=== PATIENT | male | born 1960 | race Hispanic/Latino ===

== ENCOUNTER 2022-01-11 06:56 | Day surgery (SDC) | payer OTHER ==
[2022-01-11] MEDS: Ringers Lactate 1,000 ML IV ONE ×2 (07:22→08:38)
[2022-01-11] MEDS ORDERED: LIDOCAINE 1% MPF 5 ML VIAL ONE (08:23)
[2022-01-11] MEDS ORDERED: propofoL 200 MG/20 ML VIAL IV ONE ×4 (08:23→09:34)
--- NOTE | 2022-01-11 09:05 | ENDO RPT ---
[address], [address] EGD PROCEDURE REPORT EXAM DATE: 01/11/2022 PATIENT NAME: Maricruz Correa MR#: [id number] BIRTHDATE: 1960 ATTENDING: Gomez Garcia Dr STATUS: outpatient TIP INSERTER: Sonia Fischer RN and Coretta Espitia CST INDICATIONS: The patient is a 62 yr old Male here for an EGD due to GERD PROCEDURE PERFORMED: EGD with biopsy MEDICATIONS: Per Anesthesia. TOPICAL ANESTHETIC: none CONSENT: The patient understands the risks and benefits of the procedure and understands that these risks include, but are not limited to: sedation, allergic reaction, infection, perforation and/or bleeding. Alternative means of evaluation and treatment include, among others: physical exam, x-rays, and/or surgical intervention. The patient elects to proceed with this endoscopic procedure. DESCRIPTION OF PROCEDURE: During intra-op preparation period all mechanical medical equipment was checked for proper function. Hand hygiene and appropriate measures for infection prevention was taken. Procedure, possible complications, and alternatives including but not limited to the possibility of bleeding, perforation, tear, infection, sepsis, need for surgery, need for blood transfusion, and anesthesia related complications were explained to the patient. After the risks, benefits and alternatives of the procedure were thoroughly explained, Informed consent was verified, confirmed and timeout was successfully executed by the treatment team. The patient was placed in the left lateral position. The patient was anesthetized with topical anesthesia. Through the anesthetized oropharyngeal area, the scope was passed without any difficulty. The EC-3890Li ([id number]) and [id number] ([id number]) endoscope was introduced through the mouth and advanced to the third portion of the duodenum. Retroflexed views revealed a small hiatal hernia. The gastroscope was then slowly withdrawn and removed. An early Schatzki's ring was found in the lower esophagus (no history of dysphagia). A small hiatal hernia was found Mild gastritis was found in the antrum. Multiple biopsies were obtained and sent to pathology. Multiple erosions were found in the antrum. Mild duodenitis was found in the bulb of the duodenum. ADVERSE EVENTS: There were no complications. IMPRESSIONS: 1. Early Schatzki's ring in the lower esophagus (no history of dysphagia) 2. Small hiatal hernia 3. Mild gastritis in the antrum, s/p biopsies 4. Multiple (3) erosions in the antrum 5. Mild duodenitis in the bulb of the duodenum RECOMMENDATIONS: 1. await biopsy results 2. acid suppression therapy REPEAT EXAM: Gomez Garcia Dr eSigned: Gomez Garcia Dr 01/11/2022 9:05 AM cc: Gomez Gilbert M.D. CPT CODES: ICD9 CODES: PATIENT NAME: Maricruz Correa MR#: [id number]
--- NOTE | 2022-01-11 09:51 | ENDO RPT ---
[address], [address] COLONOSCOPY PROCEDURE REPORT EXAM DATE: 01/11/2022 PATIENT NAME: Maricruz Correa MR #: [id number] BIRTHDATE: 1960 ATTENDING: Gomez Garcia Dr STATUS: outpatient AUTOMOTIVE INSTRUCTOR: Sonia Fischer RN and Coretta Espitia CST INDICATIONS: The patient is a 62 yr old Male here for a colonoscopy due to colon cancer screening PROCEDURE PERFORMED: Colonoscopy with biopsy - cold polypectomy and Colonoscopy with snare polypectomy MEDICATIONS: Per Anesthesia. ESTIMATED BLOOD LOSS: None CONSENT: The patient understands the risks and benefits of the procedure and understands that these risks include, but are not limited to: sedation, allergic reaction, infection, perforation and/or bleeding. Alternative means of evaluation and treatment include, among others: physical exam, x-rays, and/or surgical intervention. The patient elects to proceed with this endoscopic procedure. DESCRIPTION OF PROCEDURE: During intra-op preparation period all mechanical medical equipment was checked for proper function. Hand hygiene and appropriate measures for infection prevention was taken. Procedure, possible complications, alternatives including, but not limited to possibility of bleeding, perforation, tear, infection, sepsis, need for surgery, need for blood transfusion, were explained to the patient. After the risks, benefits and alternatives of the procedure were thoroughly explained, Informed consent was verified, confirmed and timeout was successfully executed by the treatment team. The patient was placed in the left lateral position. A digital rectal exam was performed and revealed external hemorrhoids. After appropriate level of anesthesia, the scope was passed. The EC-3890Li ([id number]) endoscope was introduced through the anus and advanced to the terminal ileum which was intubated for a short distance. The quality of the prep was good. The instrument was then slowly withdrawn as the colon was fully examined. Scope withdrawal time was 9 minutes. COLON FINDINGS: A smooth sessile polyp measuring 4 mm in size was found in the ascending colon. A polypectomy was performed with cold forceps. A smooth pedunculated polyp measuring 7 mm in size was found in the rectum. A polypectomy was performed using snare cautery. Two smooth sessile polyps ranging between 3-5mm in size were found in the rectum. A polypectomy was performed with a cold snare. Ten smooth sessile polyps ranging between 3-5mm in size were found in the rectum. A polypectomy was performed with cold forceps. Moderate diverticulosis was noted in the sigmoid colon. No bleeding was noted from the diverticulosis. Small internal and external hemorrhoids were found. Retroflexed views revealed small hemorrhoids. The scope was then completely withdrawn from the patient and the procedure terminated. ADVERSE EVENTS: There were no complications. IMPRESSIONS: 1. 4 mm sessile polyp in the ascending colon, s/p cold polypectomy 2. 7 mm pedunculated polyp in the rectum, s/p hot snare polypectomy 3. Two 3-5 mm sessile polyps in the rectum, s/p cold polypectomies 4. Ten 2-4 mm sessile polyps in the rectum, s/p cold polypectomies 5. Moderate diverticulosis in the sigmoid colon 6. Small internal and external hemorrhoids 7. Intubation to terminal ileum RECOMMENDATIONS: 1. await biopsy results 2. avoid NSAIDS for 2 weeks 3. fiber rich diet RECALL: Return in 3 year(s) for Colonoscopy. Gomez Garcia Dr eSigned: Gomez Garcia Dr 01/11/2022 9:51 AM cc: Gomez Gilbert CPT CODES: ICD9 CODES: PATIENT NAME: Maricruz Correa MR#: [id number]
[2022-01-11 10:05] VITALS: BP 130/93; TEMP 97.3; O2SAT 97
== END 2022-01-11 10:20 | disposition home or self-care (01) ==
LOC: OR 06:56
PROVIDERS: ATTEND Internal Medicine Gastroenterology
PROC: 0DBP8ZX Excision of Rectum, Via Natural or Artificial Opening Endoscopic, Diagnostic (ICD-10-PCS; 2022-01-11)
PROC: 0DB68ZX Excision of Stomach, Via Natural or Artificial Opening Endoscopic, Diagnostic (ICD-10-PCS; principal; 2022-01-11 08:00)
PROC: 0DBK8ZX Excision of Ascending Colon, Via Natural or Artificial Opening Endoscopic, Diagnostic (ICD-10-PCS; 2022-01-11 08:00)
DX: K21.9 Gastro-esophageal reflux disease without esophagitis (principal); Z12.11 Encounter for screening for malignant neoplasm of colon; E78.5 Hyperlipidemia, unspecified; I10 Essential (primary) hypertension; I25.10 Atherosclerotic heart disease of native coronary artery without angina pectoris; F41.8 Other specified anxiety disorders; E66.9 Obesity, unspecified; D64.4 Congenital dyserythropoietic anemia; K57.30 Diverticulosis of large intestine without perforation or abscess without bleeding; D12.4 Benign neoplasm of descending colon; K29.50 Unspecified chronic gastritis without bleeding
CPT/HCPCS: 43239; 45380; 45385; 88312; 88305; J2704 ×3; J7120

== ENCOUNTER 2022-05-23 13:30 | Emergency (ER) | payer OTHER ==
--- OUTSIDE RECORDS SUMMARY | 2022-05-23 13:31 | XMS REPORT | Continuity of Care Document ---
:1960 Author Organization [facility] t Address [address] [place] [address] Dr. Cervantes[address] [place] [address] Care Team Providers Name Role Phone JENNA HAMILTON Primary Care Physician Unavailable ANJELICA HERRON Attending Clinician Unavailable LEONEL Attending Clinician Unavailable Leonel VIDAL Attending Clinician Anjelica Herron MD Attending Clinician YESSICA K.Fran Attending Clinician Unavailable Leeanne JUAN Admitting Clinician Unavailable Payers Payer Name Policy Type Policy Number Effective Date Expiration Date S [facility] - [id number] 2020 2020 00:00:0 0 OUT OF STATE 00:00:00 Problems Condition Condition Condition Status Onset Resolution Last Treating Co mments Source Name Details Category Date Date Treatment Clinician Date Dyslipidem Dyslipidem Disease Active 2020-10 U nivers ia ia 2-05 ity of 00:00: [place] 00 Medical Branch Essential Essential Disease Active 2020-10 Uni vers hypertensi hypertensi 2-05 it y of on on 00:00: [place] 00 Medical Branch Coronary Coronary Disease Active 2020-10 Unive rs artery artery 2-05 ity of disease disease 00:00: [place] involving involving 00 Medi nimo tanana tanana Branch coronary coronary artery of artery of tanana tanana heart with heart with angina angina pectoris pectoris Atypical Atypical Disease Active 2020-10 Unive rs chest pain chest pain 2-02 it y of 00:00: [place] 00 Medical Branch Obesity Obesity Disease Active 2020-10 Univers (BMI (BMI 2-02 ity of 30-39.9) 30-39.9) 00:00: [place] 00 Medical Branch Allergies, Adverse Reactions, Alerts Allergy Allergy Status Severity Reaction(s) Onset Inactive Treating Comm ents Source Name Type Date Date Clinician NO KNOWN Drug Active Univers ALLERGIE Class ity of S [facility] Social History Social Habit Start Date Stop Date Quantity Comments Source Exposure to Not sure [facility] SARS-CoV-2 [facility] (event) Branch Alcohol intake 2022-02-13 2022-02-13 Ex-drinker [facility] 00:00:00 00:00:00 (finding) [facility] Tobacco use and 2021-09-29 2021-09-29 Never used Universit y of exposure 00:00:00 00:00:00 [facility] Sex Ass[birth year] At [birth year] Universit y of 00:00:00 00:00:00 [facility] Smoking Status Start Date Stop Date Source Never smoker [facility] Medications Ordered Filled Start Stop Current Ordering Indication Dosage Frequency Signature Comments Components Source Medication Medication Date Date Medication? Clinician (SIG) Name Name lisinopriL 2021- No 2.5mg Take 2.5 U nivers 2.5 mg 6-13 06-13 mg by ity of tablet 14:42: 00:00 mouth [place] 32 :00 daily. Medical Branch lisinopriL Yes 2.5mg Take 1 Univ ers 2.5 mg 6-13 tablet by ity of tablet 00:00: mouth [place] 00 daily. Medical Branch isosorbide Yes 30mg Take 1 Unive rs mononitrate 6-09 tablet by ity of 30 mg 24 hr 00:00: mouth [place] tablet 00 daily. Medical Branch isosorbide 0 Yes 30mg Take 1 Unive rs mononitrate 6-09 tablet by ity of 30 mg 24 hr 00:00: mouth [place] tablet 00 daily. Medical Branch traMADoL 50 Yes 50mg Take 50 mg Univers mg tablet 4-18 by mouth ity of 09:19: every 8 [place] 16 (eight) Medical hours as Branch needed. Diphenhydra Yes Take by Un amira mine-Acetam 4-18 mouth at ity of inophen 09:19: bedtime. [place] 25-500 mg 16 Medical Tab Branch gabapentin 2-0 Yes 400mg Take 400 Un amira 400 mg 4-18 mg by ity of capsule 09:19: mouth 3 [place] 16 (three) Medical times Branch daily. Pantoprazol 2022-0 Yes 40mg Take 40 mg Univers e 40 mg 4-18 by mouth ity of delayed-rel 09:19: daily. [place] s ease 16 Medical suspension Branch cyclobenzap 2021-0 Yes 5mg Take 5 mg U nivers rine 5 mg 4-18 by mouth ity of tablet 09:19: as needed [place] for Muscle Medical Spasms. Branch lisinopriL 2021-0 Yes 2.5mg Take 2.5 Un amira 2.5 mg 4-18 mg by ity of tablet 09:19: mouth [place] 16 daily. Medical Branch traMADoL 50 2021-0 Yes 50mg Take 50 mg Univers mg tablet 4-18 by mouth ity of 09:19: every 8 [place] [address] (eight) Medical hours as Branch needed. Diphenhydra 2-0 Yes Take by Un amira mine-Acetam 4-18 mouth at ity of inophen 09:19: bedtime. [place] 25-500 mg 16 Medical Tab Branch gabapentin 2021-0 Yes 400mg Take 400 Un amira 400 mg 4-18 mg by ity of capsule 09:19: mouth 3 [place] 16 (three) Medical times Branch daily. Pantoprazol 2-0 Yes 40mg Take 40 mg Univers e 40 mg 4-18 by mouth ity of delayed-rel 09:19: daily. Isidro s ease 16 Medical suspension Branch cyclobenzap 2021-0 Yes 5mg Take 5 mg U nivers rine 5 mg 4-18 by mouth ity of tablet 09:19: as needed [place] for Muscle Medical Spasms. Branch lisinopriL 2021-0 Yes 2.5mg Take 2.5 Un amira 2.5 mg 4-18 mg by ity of tablet 09:19: mouth [place] 16 daily. Medical Branch traMADoL 50 2021-0 Yes 50mg Take 50 mg Univers mg tablet 4-18 by mouth ity of 09:19: every 8 [place] 16 (eight) Medical hours as Branch needed. Diphenhydra 2022-0 Yes Take by Un amira mine-Acetam 4-18 mouth at ity of inophen 09:19: bedtime. [place] 25-500 mg 16 Medical Tab Branch gabapentin Yes 400mg Take 400 Un amira 400 mg 4-18 mg by ity of capsule 09:19: mouth 3 [place] 16 (three) Medical times Branch daily. Pantoprazol Yes 40mg Take 40 mg Univers e 40 mg 4-18 by mouth ity of delayed-rel 09:19: [place]. [place] 16 Medical suspension Branch cyclobenzap Yes 5mg Take 5 mg U nivers rine 5 mg 4-18 by mouth ity of tablet 09:19: as needed [place] 16 for Muscle Medical Spasms. Branch meloxicam 2021-2021- No [id number] 7.5mg Take 1 Univers 7.5 mg 4-18 07-18 tablet by ity of tablet 00:00: 04:59 mouth [place] 00 :00 daily for Medical 90 days. Branch meloxicam 2021-2021- No [id number] 7.5mg Take 1 Univers 7.5 mg 4-18 07-18 tablet by ity of tablet 00:00: 04:59 mouth [place] 00 :00 daily for Medical 90 days. Branch meloxicam 2021- No [id number] 7.5mg Take 1 Univers 7.5 mg 4-18 07-18 tablet by ity of tablet 00:00: 04:59 mouth [place] 00 :00 daily for Medical 90 days. Branch isosorbide Yes 30mg Take 1 Unive rs mononitrate 3-01 tablet by ity of 30 mg 24 hr 00:00: mouth [place] tablet 00 daily. Medical Branch isosorbide 2021- No 30mg Take 1 Univ ers mononitrate 3-01 -09 tablet by it y of 30 mg 24 hr 00:00: 00:00 [place] tablet 00 :00 daily. Medical Branch aspirin 81 0 Yes 81mg Take 81 mg U nivers mg EC 2-14 by mouth ity of tablet 13:57: daily. [place] [address] Medical Branch aspirin 81 2021-0 Yes 81mg Take 81 mg U nivers mg EC 2-14 by mouth ity of tablet 13:57: daily. Am [address] Branch aspirin 81 2021-0 Yes 81mg Take 81 mg U nivers mg EC 2-14 by mouth ity of tablet 13:57: daily. Am [place] 45 Medical Branch atorvastati Yes [id number] 40mg Take 1 Univers n 40 mg 2-14 tablet by ity of tablet 00:00: mouth 00 daily. Medical Branch atorvastati Yes [id number] 40mg Take 1 Univers n 40 mg 2-14 tablet by ity of tablet 00:00: mouth 00 daily. Medical Branch atorvastati Yes [id number] 40mg Take 1 Univers n 40 mg 2-14 tablet by ity of tablet 00:00: mouth 00 daily. Medical Branch Vital Signs Vital Name Observation Time Observation Value Comments Source Systolic blood 2022-02-13 14:17:00 140 mm[Hg] [facility] blood 2022-02-13 14:17:00 93 mm[facility]Hg] [facility] 2022-02-13 14:16:00 113 /min [facility] Body temperature 2022-02-13 14:16:00 36.72 Nissa [facility] Respiratory rate 2022-02-13 14:16:00 18 /min [facility] Body height 2022-02-13 14:16:00 175.3 cm [facility] Body weight 2022-02-13 14:16:00 100.517 kg [facility] BMI 2022-02-13 14:16:00 32.72 kg/m2 [facility] Oxygen saturation in 2022-02-13 14:16:00 95 /min [facility] blood by [facility] Pulse oximetry Branch Procedures This patient has no known procedures. Encounters Start End Encounter Admission Attending Care Care Encounter Source Date/Time Date/Time Type Type Clinicians Facility Department ID 2022-08-21 2022-08-21 Outpatient Ayana HERRON [facility] [id number] [facility] 10:00:00 10:00:00 [id number]-07 2022-06-07 Outpatient Ayana CASTANEDA [facility] [id number] [facility] 14:40:00 14:40:00 TIERA [id number] renitay o f [facility] 2022-04-10 2022-04-10 [facility] [id number] Univers 00:00:00 00:00:00 Rebelfelipe DE LUNAJOSE [id number] ity [facility] [id number] [id number] [address] 2022-04-06 2022-04-06 [facility] [id number] Univers 00:00:00 00:00:00 Tiera BHAGAT [id number] ity [facility] [id number] [id number] [address] 2022-02-13 2022-02-13 Office Germaine [facility] [id number] [facility] 09:15:00 10:39:45 Visit [facility] [id number] ity of [facility] [id number] [place] [id number] [address] 2021-12-12 2021-12-12 Outpatient R LEONEL [facility] [id number] Univers 14:00:00 16:11:19 TIERA taylor o f [facility] 2021-12-07 2021-12-07 Outpatient R EYSSICA [facility] [id number] Univers 09:41:29 23:59:00 SENDIL brandon [facility] Results This patient has no known results.
--- NOTE | 2022-05-23 14:39 | RAD REPORT ---
EXAM DESCRIPTION: RAD - Ankle Left 3 View - 05/23/2022 2:33 pm CLINICAL HISTORY: PAINfollowing fall, twisting injury, laceration COMPARISON: No comparisons FINDINGS: No fractures confirmed. There is no dislocation or periosteal reaction. No joint effusion seen. Minimal degenerative changes are present at the tibiotalar joint space. Soft tissue swelling is present. No foreign body. Arterial tree calcifications are present. IMPRESSION: No fracture or acute bone finding. Soft tissue swelling is present around the ankle joint.
--- NOTE | 2022-05-23 14:41 | RAD REPORT ---
EXAM DESCRIPTION: RAD - Knee Right 3 View - 05/23/2022 2:33 pm CLINICAL HISTORY: PAIN COMPARISON: No comparisons FINDINGS: No fracture, dislocation or periosteal reaction.No joint effusion seen. No joint space margareth rowing. No foreign body or other soft tissue abnormality. IMPRESSION: Negative right knee. Clinical concerns for internal derangement or occult bony injury could be further assessed with MR im aging.
[2022-05-23 14:44] LABS: Absolute Lymphocytes (CBC) 2.2 K/uL (0.7-4.9); Hematocrit 40.4 % (39.6-49.0); Lymphocytes % 22.9 % (15.3-44.8); MCV 94.8 fL (80-100); MPV 6.7 fL (7.6-11.3); RBC Red Blood Cell Count 4.26 M/uL (4.33-5.43)
[2022-05-23 15:02] LABS: Albumin 3.5 g/dL (3.4-5.0); Bilirubin Total 0.4 mg/dL (0.2-1.0); Protein, Total 6.6 g/dL (6.4-8.2)
[2022-05-23] MEDS ORDERED: HYDROCODONE/APAP 5/325 MG TAB ONE (15:06)
[2022-05-23] MEDS ORDERED: TETANUS & DIPHTHERIA TOX,ADULT 0.5 ML VIAL ONE (15:07)
--- NOTE | 2022-05-23 15:22 | RAD REPORT ---
EXAM DESCRIPTION: US - Extremity Venous Uni Ltd - 05/23/2022 2:58 pm CLINICAL HISTORY: PAIN COMPARISON: None. TECHNIQUE: Real-time sonographic evaluation of the left lower extremity deep venous system was perfo rmed. FINDINGS: Normal compressibility, flow augmentation, phasic flow and spontaneous flow are identified in the left lower extremity common femoral, superficial femoral, popliteal and posterior tibial vein s. No intraluminal filling defects seen. IMPRESSION: No DVT in the left lower extremity.
--- NOTE | 2022-05-23 15:38 | EDPHYS ---
Physician Documentation [facility] Name: Maricruz Correa Age: 62 yrs Sex: Male : 1960 Arrival Date: 05/23/2022 Time: 13:33 Bed 15 Private MD: ED Physician Adonay Sheikh HPI: 05/23 14:13 This 62 yrs old Male presents to ER via Ambulatory with complaints of Fall pm1 Injury, Ankle Injury, Leg Injury. 14:13 Details of fall: The patient fell from an upright position, while standing. Onset: The pm1 symptoms/episode began/occurred yesterday. Associated injuries: The patient sustained right knee, contusion, left medial ankle, abrasion, contusion. Severity of symptoms: in the emergency department the symptoms are actually worse. The patient has not experienced similar symptoms in the past. The patient has not recently seen a physician[place] with [place] leg starting at his ankle scratching against a rock and then falling onto his right knee. Patient reports increased swelling and possible infection to left ankle area. Patient able to walk with injury to the ankle and right knee. Historical: - Allergies: 14:13 No Known Allergies; hb - PMHx: 14:13 Hypertensive disorder; Diabetes mellitus; hb - Immunization history:: Adult Immunizations up to date. - Social history:: Smoking status: Patient denies any tobacco usage or history of. ROS: 14:13 Constitutional: Negative for fever, chills, and weight loss, Cardiovascular: Negative pm1 for chest pain, palpitations, and edema, Respiratory: Negative for shortness of breath, cough, wheezing, and pleuritic chest pain. 14:13 MS/extremity: Positive for pain, of the Right knee, left anklemedial aspect, Negative for decreased range of motion, deformity. 14:13 Skin: Positive for abrasion(s), of the left medial ankle. 14:13 All other systems are negative. Exam: 14:13 Constitutional: This is a well developed, well nourished patient who is awake, alert, pm1 and in no acute distress. Head/Face: Normocephalic, atraumatic. 14:13 Back: No spinal tenderness. No costovertebral tenderness. Full range of motion. 14:13 Eyes: Exam is negative for acute changes, Periorbital structures: appear normal, Extraocular movements: no acute changes. 14:13 ENT: Exam is negative for acute changes, Mouth: no acute changes, Lips: normal, moist, Oral mucosa: normal, pink and intact, moist. 14:13 Cardiovascular: Exam negative for acute changes, Rate: normal, Rhythm: regular, Pulses: no pulse deficits are appreciated. 14:13 Respiratory: Exam negative for acute changes, respiratory distress, shortness of breath, Breath sounds: are clear throughout. 14:13 Musculoskeletal/extremity: Extremities: grossly normal except: noted in the right knee: tenderness, There is no evidence of decreased ROM, deformity. 14:13 Skin: Appearance: normal except for affected area, abscess, not appreciated, cellulitis, that is mild, on the left medial ankle, injury, abrasion(s), moderate sized abrasion noted, of the left medial ankle, contusion(s), that are superficial, of the left medial ankle. 14:13 Neuro: Exam negative for acute changes, Orientation: is normal, Mentation: is normal, Motor: is normal, moves all fours. Vital Signs: 14:02 BP 168 / 88; Pulse 89; Resp 16; Temp 98.1; Pulse Ox 98% on R/A; Weight 102.51 kg; hb Height 5 ft. 9 in. (175.26 cm); Pain 8/10; 15:00 BP 112 / 88; Pulse 88; Resp 16; Pulse Ox 98% on R/A; vg1 14:02 Body Mass Index 33.37 (102.51 kg, 175.26 cm) hb MDM: 14:14 Patient medically screened. pm1 15:35 Data reviewed: vital signs. Data interpreted: Pulse oximetry: on room air is 98 %. pm1 Interpretation: normal. 15:35 ED course: Shared decision making with daughter and patient for either admission or pm1 trial with antibiotics and return if no improvement. Currently with medication option being p.o. medications elected for outpatient trial with antibiotics. Understood that if no improvement in worsening symptoms to return to the ER for likely admission due to failed outpatient antibiotic therapy. 05/23 14:13 Order name: CBC with Diff; Complete Time: 15:05 pm1 05/23 14:13 Order name: CMP; Complete Time: 15:05 pm1 05/23 14:13 Order name: Knee Right 3 View XRAY; Complete Time: 15:05 pm1 05/23 14:13 Order name: Ankle Left 3 View XRAY; Complete Time: 14:42 pm1 05/23 14:13 Order name: Extremity Venous Uni Ltd US; Complete Time: 15:25 pm1 05/23 14:13 Order name: IV Saline Lock; Complete Time: 15:15 pm1 Administered Medications: 15:20 Drug: Tetanus-Diphtheria Toxoid Adult 0.5 ml {Locksmith: [employer]uso. Exp: vg1 01/21/2024. Lot #: [id number]. } Route: IM; Site: right deltoid; 15:20 Drug: HYDROcodone-acetaminophen 5 mg-325 mg 1 tabs Route: PO; vg1 16:00 Drug: Doxycycline 100 mg Route: PO; vg1 16:00 Drug: Bactrim (trimethoprim-sulfamethoxazole) (160 mg-800 mg (DS) 1 tablet Route: PO; vg1 Disposition Summary: 05/23/22 15:38 Discharge Ordered Location: Home pm1 Problem: new pm1 Symptoms: have improved pm1 Condition: Stable pm1 Diagnosis - Contusion of right knee pm1 - Cellulitis of left lower limb - left ankle pm1 Followup: pm1 - With: Emergency Department - When: As needed - Reason: Worsening of condition Followup: pm1 - With: Private Physician - When: 2 - 3 days - Reason: Recheck today's complaints, Continuance of care, Re-evaluation by your physician Discharge Instructions: - Discharge Summary Sheet pm1 - Contusion pm1 - Cellulitis, Adult pm1 - Acute Knee Pain, Adult pm1 Forms: - Medication Reconciliation Form pm1 - Thank You Letter pm1 - Antibiotic Education pm1 - Prescription Opioid Use pm1 Prescriptions: - Doxycycline Hyclate 100 mg Oral Tablet - take 1 tablet by ORAL route every 12 hours; 20 tablet; Refills: 0, Product pm1 Selection Permitted - Bactrim DS 800-160 mg Oral Tablet - take 1 tablet by ORAL route every 12 hours for 10 days; 20 tablet; Refills: 0, pm1 Product Selection Permitted - Tylenol-Codeine #3 300 mg-30 mg Oral - take 2 tablet by ORAL route every 6 hours As needed; 20 tablet; Refills: 0, pm1 Product Selection Permitted Signatures: Dispatcher [employer] EDGeovanni Waddell NP BAND SHOVER pm1 Aury Jordan, RN RN hb Angie Correa RN RN vg1 Corrections: (The following items were deleted from the chart) 15 14:13 PMHx: hyperten; hb hb
--- NOTE | 2022-05-23 15:38 | ER ---
Nurse's Notes [facility] Name: Maricruz Correa Age: 62 yrs Sex: Male : 1960 Arrival Date: 05/23/2022 Time: 13:33 Bed 15 Private MD: Diagnosis: Contusion of right knee;Cellulitis of left lower limb-left ankle Presentation: 05/23 14:02 Chief complaint: Left ankle and right knee pain [place]. hb Abrasion noted to left ankle. Coronavirus screen: At this time, the client does not indicate any symptoms associated with coronavirus-19. Ebola Screen: No symptoms or risks identified at this time. Initial Sepsis Screen: Does the patient meet any 2 criteria? No. Patient's initial sepsis screen is negative. Does the patient have a suspected source of infection? No. Patient's initial sepsis screen is negative. Risk Assessment: Do you want to hurt yourself or someone else? Patient reports no desire to harm self or others. Onset of symptoms was May 22, 2022. 14:02 Method Of Arrival: Ambulatory hb 14:02 Acuity: MAURA 3 hb Historical: - Allergies: 14:13 No Known Allergies; hb - PMHx: 14:13 Hypertensive disorder; Diabetes mellitus; hb - Immunization history:: Adult Immunizations up to date. - Social history:: Smoking status: Patient denies any tobacco usage or history of.
[2022-05-23] MEDS ORDERED: DOXYCYCLINE 100 MG CAP PO ONE (16:04)
[2022-05-23] MEDS ORDERED: SMZ./TMP. 800/160 MG TABLET ONE (16:04)
[2022-05-23 16:42] VITALS: TEMP 98.1; O2SAT 98
[2022-05-23 16:45] VITALS: BP 112/88
== END 2022-05-23 16:27 | disposition home or self-care (01) ==
LOC: ER 13:30
DX: L03.116 Cellulitis of left lower limb (principal); S80.01XA Contusion of right knee, initial encounter; Z23 Encounter for immunization; E11.9 Type 2 diabetes mellitus without complications; I10 Essential (primary) hypertension
CPT/HCPCS: 36415; 80053; 85025; 90471; 90714; 93971; 99284

== ENCOUNTER 2022-06-21 13:45 | Observation (INO) | payer OTHER ==
--- OUTSIDE RECORDS SUMMARY | 2022-06-21 13:49 | XMS REPORT | Continuity of Care Document ---
:1960 Author Organization [facility] t Address [address] [place] [address] Dr. Cervantes[address] [place] [address] Care Team Providers Name Role Phone JENNA HAMILTON Primary Care Physician Unavailable BERNIE HERRON Attending Clinician Unavailable TIERA CASTANEDA Attending Clinician Unavailable Tiera Castaneda MD Attending Clinician Bernie Herron MD Attending Clinician [phone] YESSICA, SENDLETICIA K.HSaud Attending Clinician Unavailable YESSICA SENDLETICIA K.HSaud Admitting Clinician Unavailable Payers Payer Name Policy Type Policy Number Effective Date Expiration Date S ource [facility] [id number] 2021 PLUS 00:00:00 BCBS [facility] - [id number] 2020 2020 00:00:0 0 OUT OF STATE 00:00:00 Problems Condition Condition Condition Status Onset Resolution Last Treating Co mments Source Name Details Category Date Date Treatment Clinician Date Dyslipidem Dyslipidem Disease Active 2020-10 U nivers ia ia 2-05 ity of 00:00: [place] 00 Medical Branch Essential Essential Disease Active 2020-10 Uni vers hypertensi hypertensi 2-05 it y of on on 00:00: [place] 00 Medical Branch Coronary Coronary Disease Active 2020-10 Unive rs artery artery 2-05 ity of disease disease 00:00: [place] involving involving 00 Medi nimo [place] coronary coronary artery of artery of [place] heart with heart with angina angina pectoris pectoris Atypical Atypical Disease Active 2020-10 Unive rs chest pain chest pain 2- it y of 00:00: [place] 00 Medical Branch Obesity Obesity Disease Active 2020-10 Univers (BMI (BMI 2- ity of 30-39.9) 30-39.9) 00:00: [place] 00 Medical Branch Allergies, Adverse Reactions, Alerts Allergy Allergy Status Severity Reaction(s) Onset Inactive Treating Comm ents Source Name Type Date Date Clinician NO KNOWN Drug Active Univers ALLERGIE Class ity of S [facility] Social History Social Habit Start Date Stop Date Quantity Comments Source Exposure to Not sure [facility] SARS-CoV-2 [place] Medical (event) Branch Alcohol intake 2022-02-13 2022-02-13 Ex-drinker [facility] 00:00:00 00:00:00 (finding) [facility] Tobacco use and 2021-09-29 2021-09-29 Never used Universit y of exposure 00:00:00 00:00:00 [facility] Sex Ass[birth year] At [birth year] Universit y of 00:00:00 00:00:00 [facility] Smoking Status Start Date Stop Date Source Never smoker [facility] Medications Ordered Filled Start Stop Current Ordering Indication Dosage Frequency Signature Comments Components Source Medication Medication Date Date Medication? Clinician (SIG) Name Name lisinopriL No 2.5mg Take 2.5 U nivers 2.5 [...] [place] tablet 00 daily. Medical Branch isosorbide Yes 30mg Take 1 Unive rs mononitrate 6-09 tablet by ity of 30 mg 24 hr 00:00: mouth [place] tablet 00 daily. Medical Branch traMADoL 50 Yes 50mg Take 50 mg Univers mg tablet 4-18 by mouth ity of 09:19: every 8 [place] 16 (eight) Medical hours as Branch needed. Diphenhydra 2-0 Yes Take by Uni vers mine-Acetam 4-18 mouth at ity of inophen 09:19: bedtime. [place] 25-500 mg 16 Medical Tab Branch gabapentin 2021-0 Yes 400mg Take 400 Un amira 400 mg 4-18 mg by ity of capsule 09:19: mouth 3 [place] [id number] (three) Medical times Branch daily. Pantoprazol 2-0 Yes 40mg Take 40 mg Univers e 40 mg 4-18 by mouth ity of delayed-rel 09:19: [place]. [place] 16 Medical suspension Branch cyclobenzap 2021-0 Yes 5mg Take 5 mg U nivers rine 5 mg 4-18 by mouth ity of tablet 09:19: as needed [place] [id number] for Muscle Medical Spasms. Branch lisinopriL 2021-0 Yes 2.5mg Take 2.5 Un amira 2.5 mg 4-18 mg by ity of tablet 09:19: mouth [place] [id number] daily. Medical Branch traMADoL 50 2021-0 Yes 50mg Take 50 mg Univers mg tablet 4-18 by mouth ity of 09:19: every 8 [place] [id number] (eight) Medical hours as Branch needed. Diphenhydra 2-0 Yes Take by Uni vers mine-Acetam 4-18 mouth at ity of inophen 09:19: bedtime. [place] 25-500 mg 16 Medical Tab Branch gabapentin 2021-0 Yes 400mg Take 400 Un amira 400 mg 4-18 mg by ity of capsule 09:19: mouth 3 [place] [id number] (three) Medical times Branch daily. Pantoprazol 2-0 Yes 40mg Take 40 mg Univers e 40 mg 4-18 by mouth ity of delayed-rel 09:19: [place]. [place] 16 Medical suspension Branch cyclobenzap 2021-0 Yes 5mg Take 5 mg U nivers rine 5 mg 4-18 by mouth ity of tablet 09:19: as needed [place] [id number] for Muscle Medical Spasms. Branch lisinopriL 2-0 Yes 2.5mg Take 2.5 Un amira 2.5 mg 4-18 mg by ity of tablet 09:19: mouth [place] [id number] daily. Medical Branch traMADoL 50 2-0 Yes 50mg Take 50 mg Univers mg tablet 4-18 by mouth ity of 09:19: every 8 [place] 16 (eight) Medical hours as Branch needed. Diphenhydra Yes Take by Uni vers mine-Acetam 4-18 mouth at ity of inophen 09:19: bedtime. [place] 25-500 mg 16 Medical Tab Branch gabapentin 0 Yes 400mg Take 400 Un amira 400 mg 4-18 mg by ity of capsule 09:19: mouth 3 [place] 16 (three) Medical times Branch daily. Pantoprazol Yes 40mg Take 40 mg Univers e 40 mg 4-18 by mouth ity of delayed-rel 09:19: [place]. [place] 16 Medical suspension Branch cyclobenzap Yes 5mg Take 5 mg U nivers rine 5 mg 4-18 by mouth ity of tablet 09:19: as needed [place] 16 for Muscle Medical Spasms. Branch meloxicam 2021- No [id number] 7.5mg Take 1 Univers 7.5 mg 4-18 07-18 tablet by ity of tablet 00:00: 04:59 mouth [place] 00 :00 daily for Medical 90 days. Branch meloxicam 2021- No [id number] 7.5mg Take 1 Univers 7.5 mg 4-18 07-18 tablet by ity of tablet 00:00: 04:59 mouth [place] 00 :00 daily for Medical 90 days. Branch meloxicam 2021- No [id number] 7.5mg Take 1 Univers 7.5 mg 4-18 [...] mouth ity of tablet 13:57: daily. Am [place] 45 Medical Branch aspirin 81 2021-0 Yes 81mg Take 81 mg U nivers mg EC 2-14 by mouth ity of tablet 13:57: daily. Am [address] aspirin 81 2021-0 Yes 81mg Take 81 mg U nivers mg EC 2-14 by mouth ity of tablet 13:57: daily. Am [address] atorvastati Yes [id number] 40mg Take 1 Univers n 40 mg 2-14 tablet by ity of tablet 00:00: mouth [place] 00 daily. Medical Branch atorvastati Yes [id number] 40mg Take 1 Univers n 40 mg 2-14 tablet by ity of tablet 00:00: mouth [place] 00 daily. Medical Branch atorvastati Yes [id number] 40mg Take 1 Univers n 40 mg 2-14 tablet by ity of tablet 00:00: mouth [place] 00 daily. [facility] Vital Signs Vital Name Observation Time Observation Value Comments Source Systolic blood 2022-02-13 14:17:00 140 mm[Hg] [facility] [place] [facility] Diastolic blood 2022-02-13 14:17:00 93 mm[Hg] [facility] [place] [facility] Heart rate 2022-02-13 14:16:00 113 /min [facility] Body temperature 2022-02-13 14:16:00 36.72 [facility] Respiratory rate 2022-02-13 14:16:00 18 /min [facility] Body height 2022-02-13 14:16:00 175.3 cm [facility] Body weight 2022-02-13 14:16:00 100.517 kg [facility] BMI 2022-02-13 14:16:00 32.72 kg/m2 [facility] Oxygen saturation in 2022-02-13 14:16:00 95 /min [facility] Arterial blood by [facility] Pulse oximetry Branch Procedures This patient has no known procedures. Encounters Start End Encounter Admission Attending Care Care Encounter Source Date/Time Date/Time Type Type Clinicians Facility Department ID 2022-08-21 2022-08-21 Outpatient R CARNO [facility] [id number] [facility] 10:00:00 10:00:00 [facility] [id number] [facility] 2022-07-26 Outpatient LEONEL, [facility] [id number] Univers 15:20:00 15:20:00 KARANFRANCHESCA [id number] ity o [facility] 2022-06-07 2022-06-07 Outpatient R LEONEL, [facility] [id number] Univers 14:40:00 14:40:00 LANDONGISSELLE [id number] ity o [facility] 2022-06-07 2022-06-07 Outpatient R LEONEL, [facility] [id number] Univers 14:40:00 14:40:00 TIERA taylor o [facility] 2022-04-10 2022-04-10 Refill [facility] [id number] Univers 00:00:00 00:00:00 Tiera BHAGAT [id number] it[facility] [id number] [phone] [address] 2022-04-06 2022-04-06 [facility] [id number] Univers 00:00:00 00:00:00 Tiera BHAGAT [id number] [facility] [id number] [phone] [address] 2022-02-13 2022-02-13 Office VIRGILIO Herron [id number] Univers 09:15:00 10:39:45 Visit [facility] [id number] ity of [facility] [id number] [phone] [address] 2021-12-12 2021-12-12 Outpatient R LEONEL, [facility] [id number] Univers 14:00:00 16:11:19 TIERA t[place] o [facility] 2021-12-07 2021-12-07 Outpatient R JUAN, [facility] [id number] Univers 09:41:29 23:59:00 SENDIL ity [facility] Results This patient has no known results.
[2022-06-21 16:33] LABS: Absolute Lymphocytes (CBC) 2.3 K/uL (0.7-4.9); Hematocrit 44.5 % (39.6-49.0); Lymphocytes % 21.5 % (15.3-44.8); MCV 94.4 fL (80-100); MPV 6.7 fL (7.6-11.3); RBC Red Blood Cell Count 4.72 M/uL (4.33-5.43)
--- NOTE | 2022-06-21 16:48 | RAD REPORT ---
EXAM DESCRIPTION: RAD - Ankle Left 3 View - 06/21/2022 4:42 pm CLINICAL HISTORY: SWELLING COMPARISON: Chest Single View dated 07/15/2021; Chest Pa And Lat (2 Views) dated 05/21/2018; Chest Sin gle View dated 03/05/2017; Chest Pa And Lat (2 Views) dated 06/08/2016Ankle Left 3 View dated 05/23/2022 FINDINGS/IMPRESSION: No acute fracture. No malalignment. Degenerative changes are present at the tib iotalar joint medially. .
[2022-06-21 16:52] LABS: Albumin 3.9 g/dL (3.4-5.0); Bilirubin Total 0.2 mg/dL (0.2-1.0); Potassium 4.6 mmol/L (3.5-5.1); Protein, Total 7.5 g/dL (6.4-8.2)
--- NOTE | 2022-06-21 18:05 | RAD REPORT ---
EXAM DESCRIPTION: US - Extremity Venous Uni Ltd - 06/21/2022 5:53 pm COMPARISON: None. TECHNIQUE: Real-time sonographic evaluation of the left lower extremity deep venous system was perfo rmed. FINDINGS: Normal compressibility, flow augmentation, phasic flow and spontaneous flow is identified in the left lower extremity deep venous system. No intraluminal filling defects seen. 5 cm hypoechoic structure at the patient's left ankle within the subcutaneous tissues. No vascular fl ow is present. IMPRESSION: No DVT in the left lower extremity. Probable subcutaneous hematoma at the left ankle.
[2022-06-21] MEDS ORDERED: NA CHLORIDE 0.9% 100 ML ONE (18:52)
[2022-06-21] MEDS ORDERED: VANCOMYCIN 1 GM/VIAL ONE ×2 (18:52→22:35)
--- NOTE | 2022-06-21 19:10 | RAD REPORT ---
EXAM DESCRIPTION: RAD - Chest Single View - 06/21/2022 6:50 pm CLINICAL HISTORY: pre op COMPARISON: No comparisons FINDINGS: Lines: None. Lungs: No evidence of edema or pneumonia. Pleural: No significant pleural effusions or pneumothorax. Cardiac: The heart size is within normal limits. Bones: No acute fractures. Right shoulder arthroplasty. Other: IMPRESSION: No acute cardiopulmonary disease.
--- NOTE | 2022-06-21 19:53 | ER ---
Nurse's Notes [facility] Name: Maricruz Correa Jr Age: 62 yrs Sex: Male : 1960 Arrival Date: 06/21/2022 Time: 13:47 Bed 27 Private MD: Diagnosis: Cellulitis of Lower Extremity Presentation: 06/21 14:11 Chief complaint: Patient states: he had an injury to his left ankle approx a month ago. ap3 Patient states he has been on antibiotics, but doesn't see any improvement. Patient reports that his daughter wanted him to come get evaluated to see if the swollen area needs to be lanced. Coronavirus screen: At this time, the client does not indicate any symptoms associated with coronavirus-19. Ebola Screen: No symptoms or risks identified at this time. Initial Sepsis Screen: Does the patient meet any 2 criteria? No. Patient's initial sepsis screen is negative. Does the patient have a suspected source of infection? No. Patient's initial sepsis screen is negative. Risk Assessment: Do you want to hurt yourself or someone else? Patient reports no desire to harm self or others. Onset of symptoms was April 2022. 14:11 Method Of Arrival: Ambulatory ap3 14:16 Acuity: MAURA 4 ap3 Triage Assessment: 14:16 General: Appears in no apparent distress. Behavior is calm, cooperative. Pain: ap3 Complains of pain in left medial ankle Pain began gradually, over the last month. Neuro: Level of Consciousness is awake, alert, obeys commands, Oriented to person, place, time, situation. Cardiovascular: Patient's skin is warm and dry. Respiratory: Airway is patent Respiratory effort is even, unlabored. Derm: Wound noted left medial ankle. Historical: - Allergies: 14:13 No Known Allergies; ap3 - PSHx: 14:13 Cardiac stent; ap3 - Immunization history:: Client reports receiving the 2nd dose of the Covid vaccine. - Social history:: Smoking status: Patient denies any tobacco usage or history of. Screenin:16 Abuse screen: Denies threats or abuse. Nutritional screening: No deficits noted. ap3 Tuberculosis screening: No symptoms or risk factors identified. 18:25 Fall Risk None identified. kb3 Assessment: 18:25 General: Received care of pt from [facility] without distress. PT reports wound kb3 to inner aspect of left lower leg x 1 month. [place] and does not feel like it has heeled. Quarter-sized scab noted to left lower leg with approximately 6 cm circular area of swelling around the wound that is warm, soft, pink and tender to touch. 21:15 Reassessment: report given to Keshav SHELTON for ED hold room 27. bb Vital Signs: 14:11 Pulse 112; Resp 17; Temp 97.3; Pulse Ox 96% ; Weight 104.33 kg; Height 5 ft. 9 in. ap3 (175.26 cm); Pain 6/10; 14:16 BP 126 / 97; ap3 16:36 BP 125 / 90; Pulse 88; Resp 16; Temp 97.3; Pulse Ox 98% ; Weight 104.33 kg; Height 5 zm ft. 9 in. (175.26 cm); 16:36 Body Mass Index 33.96 (104.33 kg, 175.26 cm) ED Course: 13:47 Patient arrived in ED. am2 13:56 Edmundo Lucero PA is PHCP. jmm 13:56 Erick Saleem MD is Attending Physician. jmm 14:17 Triage completed. ap3 14:17 Arm band placed on left wrist. ap3 16:26 Inserted saline lock: 20 gauge in right antecubital area, using aseptic technique. zm Blood collected. 16:26 Lactate Sent. zm 16:27 Blood Culture Adult (2) Sent. zm 16:27 CMP Sent. zm 16:27 CBC with Diff Sent. zm 16:42 Caro Lyman, RN is Primary Nurse. kb3 16:44 Ankle Left 3 View XRAY In Process Unspecified. EDMS 17:17 Blood Culture Adult (2) Sent. kb3 17:55 US Extremity Venous Unilateral Ltd In Process Unspecified. EDMS 18:25 Patient has correct armband on for positive identification. Fall risk band placed. kb3 18:25 No provider procedures requiring assistance completed. kb3 18:52 Chest Single View XRAY In Process Unspecified. EDMS 19:52 Juan Neal is Hospitalizing Provider. jmm 21:16 Patient admitted, IV remains in place. bb Administered Medications: 18:47 Drug: vancoMYCIN 1 grams Route: IVPB; Infused Over: 2 hrs; Site: right antecubital; kb3 20:57 Follow up: IV Status: Completed infusion; IV Intake: 250ml bb Medication: 18:25 VIS not applicable for this client. kb3 Intake: 20:57 IV: 250ml; Total: 250ml. bb Outcome: 19:53 Decision to Hospitalize by Provider. diegom 21:16 Admitted to ER Hold. Please see [facility] for further documentation. bb 21:16 Condition: stable bb 06/22 10:52 Patient left the ED. ap3 Signatures: Dispatcher [employer] EDMS Edmundo Lucero PA PA jmm Ballard, Brenda, RN RN Manuela Patino Amanda, RN RN ap3 Rebecca Martin Kelly RN RN kb3 Corrections: (The following items were deleted from the chart) 06/21 14:15 14:13 Home Meds: None; ap3 ap3 14:15 14:13 PMHx: diabetes mellitus; ap3 ap3 14:15 14:13 PMHx: Hypertensive disorder; ap3 ap3 14:15 14:13 PMHx: None; ap3 ap3
--- NOTE | 2022-06-21 19:54 | EDPHYS ---
Physician Documentation [facility] Name: Maricruz Correa Jr Age: 62 yrs Sex: Male : 1960 Arrival Date: 06/21/2022 Time: 13:47 Bed 27 Private MD: ED Physician Erick Saleem HPI: 06/21 15:56 This 62 yrs old Male presents to ER via Ambulatory with complaints of ankle m pain/lump. 15:56 Is a 62-year-old male with history of diabetes mellitus the presents emerged part with [facility] complaints of left lower leg swelling. Patient was initially injured approximately a month ago and scraped his leg on rocks in salt water. Patient was given Bactrim and doxycycline. Patient states the redness is gone away but still has swelling with pain to the point the patient cannot bear weight. Denies fever or chills.. Historical: - Allergies: 14:13 No Known Allergies; ap3 - PSHx: 14:13 Cardiac stent; ap3 - Immunization history:: Client reports receiving the 2nd dose of the Covid vaccine. - Social history:: Smoking status: Patient denies any tobacco usage or history of. ROS: 15:56 Constitutional: Negative for fever, chills, and weight loss, Cardiovascular: Negative jmm for chest pain, palpitations, and edema, Respiratory: Negative for shortness of breath, cough, wheezing, and pleuritic chest pain. 15:56 MS/extremity: Positive for pain, swelling. 15:56 All other systems are negative. Exam: 15:56 Constitutional: This is a well developed, well nourished patient who is awake, alert, jmm and in no acute distress. Head/Face: atraumatic. Eyes: EOMI, no conjunctival erythema appreciated ENT: Moist Mucus Membranes Neck: Trachea midline, Supple Chest/axilla: Normal chest wall appearance and motion. Cardiovascular: Regular rate and rhythm. No edema appreciated Respiratory: Normal respirations, no respiratory distress appreciated Abdomen/GI: Non distended Back: Normal ROM 15:56 Skin: Abrasion noted to the left lower medial leg, swelling is appreciated as well area is tender to palpation, no warmth appreciated no erythema or induration appreciated. Compartments are soft. 15:56 Neuro: Orientation: is normal, Mentation: is normal, Memory: is normal. 15:56 Psych: Behavior/mood is pleasant, cooperative. Vital Signs: 14:11 Pulse 112; Resp 17; Temp 97.3; Pulse Ox 96% ; Weight 104.33 kg; Height 5 ft. 9 in. ap3 (175.26 cm); Pain 6/10; 14:16 BP 126 / 97; ap3 16:36 BP 125 / 90; Pulse 88; Resp 16; Temp 97.3; Pulse Ox 98% ; Weight 104.33 kg; Height 5 zm ft. 9 in. (175.26 cm); 16:36 Body Mass Index 33.96 (104.33 kg, 175.26 cm) zm MDM: 15:56 Patient medically screened. [facility] 19:50 Data reviewed: vital signs, nurses notes. Counseling: I had a detailed discussion with goldy the patient and/or guardian regarding: the historical points, exam findings, and any diagnostic results supporting the discharge/admit diagnosis, lab results, radiology results, the need for further work-up and treatment in the hospital. ED course: I discussed the patient with Dr. Martin whom recommends the patient be NPO. Will drain the left lower leg tomorrow morning. Recommended antibiotics. I discussed the patient with AYO Barlow whom recommended admitting to Dr. Ángel licea.. 06/21 15:57 Order name: CBC with Diff; Complete Time: 16:43 [facility] 06/21 15:57 Order name: CMP; Complete Time: 16:56 [facility] 06/21 15:57 Order name: Blood Culture Adult (2) [facility] 06/21 15:57 Order name: Lactate; Complete Time: 16:56 [facility] 06/21 18:26 Order name: Troponin High Sensitivity [facility] 06/21 19:54 Order name: SARS RAPID [facility] 06/21 15:58 Order name: Ankle Left 3 View XRAY; Complete Time: 16:56 [facility] 06/21 15:58 Order name: US Extremity Venous Unilateral Ltd; Complete Time: 18:09 [facility] 06/21 18:26 Order name: Chest Single View XRAY; Complete Time: 19:17 [facility] 06/22 02:44 Order name: CBC with Automated Diff [facility] 06/22 02:58 Order name: Basic Metabolic Panel [facility] 06/22 02:58 Order name: Phosphorus [facility] 06/22 02:58 Order name: Magnesium EDMS 06/22 06:06 Order name: Urinalysis [facility] 06/21 15:57 Order name: Saline Lock; Complete Time: 16:27 [facility] 06/21 18:26 Order name: EKG - Nurse/Tech; Complete Time: 18:47 [facility] Administered Medications: 18:47 Drug: vancoMYCIN 1 grams Route: IVPB; Infused Over: 2 hrs; Site: right antecubital; kb3 20:57 Follow up: IV Status: Completed infusion; IV Intake: 250ml bb Disposition Summary: 06/21/22 19:53 Hospitalization Ordered Hospitalization Status: Observation [facility] Provider: Juan Neal Condition: Stable [facility] Problem: new [facility] Symptoms: are unchanged [facility] Bed/Room Type: Standard [facility] Location: [facility] ER HOLD(06/21/22 21:34) eb1 Room Assignment: ERHOLD-(06/21/22 21:34) eb1 Diagnosis - Cellulitis of Lower Extremity [facility] Forms: - Medication Reconciliation Form [facility] - SBAR form [facility] Addendum: 06/23/2022 11:19 Co-signature as Attending Physician, Erick Saleem MD I agree with the assessment and k dr plan of care. Signatures: Dispatcher [employer] [facility] Erick Saleem MD MD kdr Mickail, Joel, PA PA [facility] Manuela Whitley, RN RN ap3 Mai Padron RN RN eb1 Caro Lyman RN RN [email or web address] Adilene Augustine RN bb Corrections: (The following items were deleted from the chart) 06/21 14:15 14:13 Home Meds: None; ap3 ap3 14:15 14:13 PMHx: diabetes mellitus; ap3 ap3 14:15 14:13 PMHx: Hypertensive disorder; ap3 ap3 14:15 14:13 PMHx: None; ap3 ap3 21:34 19:53 Telemetry/MedSurg (observation) [facility] eb1 21:34 19:53 [facility] eb1
[2022-06-21] MEDS ORDERED: HYDROCODONE/APAP 10/325 TAB ONE (20:03)
--- NOTE | 2022-06-21 20:28 | P.HP ---
Certification for Inpatient Patient admitted to: Observation With expected LOS: <2 Midnights Patient will require the following post-hospital care: None Practitioner: I am a practitioner with admitting privileges, knowledge of patient current condition, hospital course, and medical plan of care. Services: Services provided to patient in accordance with Admission requirements found in Title 42 Section 412.3 of the Code of Federal Regulations Patient History Date of Service: 06/22/22 Reason for admission: Cellulitus/Hematoma LLE History of Present Illness: Patient is a 62-year-old male with CAD who presented to the ED with complaints of left ankle pain. Patient reports that about 1 month ago he scraped [place] leg [place], came to ED, and has been taking doxycycline and Bactrim since. He states that the wound has not healed and now he cannot bear weight without significant pain. Hematoma noted to left medical ankle with surrounding erythema. General surgery was consulted and wishes to take patient to the OR tomorrow to drain the hematoma. Labs are unremarkable. No concern for sepsis at this time. He was started on vancomycin in the ED. He is admitted for further evaluation and treatment. Allergies No Known Allergies Allergy (Verified 01/09/22 15:35) Home medications list reviewed: Yes Home Medications: Atorvastatin Calcium [Lipitor] 40 mg PO BEDTIME 01/09/22 Cyclobenzaprine HCl [Flexeril] 5 mg PO PRN PRN 01/09/22 Isosorbide Mononitrate [Isosorbide Mononitrate ER] 30 mg PO DAILY 01/09/22 Lisinopril [Zestril] 2.5 mg PO DAILY 01/09/22 Pantoprazole [Protonix Tab] 40 mg PO DAILY 01/09/22 Tramadol HCl [Ultram] 50 mg PO PRN PRN 01/09/22 - Past Medical/Surgical History Diabetic: No -: CAD -: Stent -: Bilateral rotator cuff repair Psychosocial/ Personal History: Patient lives at home with his . - Family History Father -: Diabetes Brother -: Diabetes - Social History Smoking Status: Never smoker Alcohol use: Yes CD- Drugs: Yes Caffeine use: Yes Place of Residence: Home Review of Systems Musculoskeletal: Leg Pain Physical Examination - Physical Exam General: Alert, In no apparent distress HEENT: Atraumatic, PERRLA, Mucous membr. moist/pink, EOMI, Sclerae nonicteric Neck: Supple, 2+ carotid pulse no bruit, No LAD, Without JVD or thyroid abnormality Respiratory: Clear to auscultation bilaterally, Normal air movement Cardiovascular: Regular rate/rhythm, Normal S1 S2 Gastrointestinal: Normal bowel sounds, No tenderness Musculoskeletal: No tenderness Integumentary: Skin lesion, Tenderness/swelling, Erythema, Warmth Neurological: Normal speech, Normal strength at 5/5 x4 extr, Normal tone, Normal affect - Studies Laboratory Data (last 24 hrs) 06/21/22 16:20: Sodium 136, Potassium 4.6, BUN 15, Creatinine 1.09, Glucose 94, Total Bilirubin 0.2, AST 17, ALT 44, Alkaline Phosphatase 92 06/21/22 16:20: WBC 10.60, Hgb 15.0, Hct 44.5, Plt Count 327 Assessment and Plan - Problems (Diagnosis) (1) Hematoma of left ankle Current Visit: Yes Status: Acute (2) Cellulitis of left ankle Current Visit: Yes Status: Acute (3) CAD (coronary artery disease) Current Visit: Yes Status: Chronic Qualifiers: Coronary Disease-Associated Artery/Lesion type: [place] artery [place] vs. transplanted heart: [place] heart Associated angina: without angina Qualified Code(s): I25.10 - Atherosclerotic heart disease of [place] coronary artery without angina pectoris - Plan -NPO at midnight. IV fluids -General surgery consult -Continue vancomycin -Pain medications as needed -Reconcile and continue home medications -Monitor and replete electrolytes per protocol -SCD (right leg) for DVT prophylaxis -Full code Discharge Plan: Home Plan to discharge in: 24 Hours - Advance Directives Does patient have a Living Will: No Does patient have a Durable POA for Healthcare: No - Code Status/Comfort Care Code Status Assessed: Yes (Full) Critical Care: No Time Spent Managing Pts Care (In Minutes): 50
[2022-06-21] MEDS ORDERED: MORPHINE 2 MG/ML SYR IV PRN (20:43)
[2022-06-21 21:42] VITALS: BMI 34.0
[2022-06-21] MEDS ORDERED: VANCOMYCIN 1 GM in NA CHLORIDE 0.9% 250 ML IVPB SCH (22:13)
[2022-06-21] MEDS ORDERED: ACETAMINOPHEN 500 MG TAB PO PRN (22:13)
[2022-06-21] MEDS ORDERED: ONDANSETRON 4 MG/2 ML VIAL IV PRN (22:13)
[2022-06-21] MEDS: NA CHLORIDE 0.9% 1,000 ML IV SCH (22:13)
[2022-06-21] MEDS ORDERED: VANCOMYCIN 750 MG in NA CHLORIDE 0.9% 150 ML IVPB ONE (22:30)
[2022-06-21] MEDS ORDERED: NA CHLORIDE 0.9% 1,000 ML ONE (22:35)
[2022-06-21] MEDS ORDERED: NA CHLORIDE 0.9% 250 ML ONE (22:42)
[2022-06-22 02:42] LABS: Absolute Lymphocytes (CBC) 2.3 K/uL (0.7-4.9); Hematocrit 37.9 % (39.6-49.0); Lymphocytes % 26.1 % (15.3-44.8); MCV 94.7 fL (80-100); MPV 6.8 fL (7.6-11.3); RBC Red Blood Cell Count 4.01 M/uL (4.33-5.43)
[2022-06-22 02:54] LABS: Magnesium 2.3 mg/dL (1.8-2.4); Phosphorus 3.8 mg/dL (2.5-4.9); Potassium 4.3 mmol/L (3.5-5.1)
[2022-06-22 06:06] LABS: Specific Gravity >= 1.030 (1.005-1.030); Urine Bilirubin Negative (Negative); Urine Blood Negative (Negative); Urine Clarity Clear (Clear); Urine Color Yellow (Yellow); Urine Glucose Negative (Negative); Urine Protein Negative (Negative); Urine Urobilinogen 0.2 mg/dL (0.2-1.0); Urine pH 5.5 (5.0-7.0)
[2022-06-22] MEDS: NA CHLORIDE 0.9% 1,000 ML IV SCH (08:13)
[2022-06-22] MEDS ORDERED: NA CHLORIDE 0.9% 1,000 ML ONE (08:56)
[2022-06-22] MEDS ORDERED: VANCOMYCIN 1.75 GM in NA CHLORIDE 0.9% 500 ML IVPB SCH (09:00)
[2022-06-22] MEDS ORDERED: propofoL 200 MG/20 ML VIAL IV ONE (09:54)
[2022-06-22] MEDS ORDERED: LIDOCAINE 2% MPF 5 ML VIAL ONE (09:55)
[2022-06-22] MEDS ORDERED: KETOROLAC 30 MG/ML INJ ONE (09:55)
[2022-06-22] MEDS ORDERED: dexAMETHasone 10 MG/ML VIAL ONE (09:55)
[2022-06-22] MEDS ORDERED: MIDAZOLAM HCL 2 MG/2 ML INJ ONE (09:55)
[2022-06-22] MEDS ORDERED: ONDANSETRON 4 MG/2 ML VIAL ONE ×2 (09:55→11:35)
[2022-06-22] MEDS ORDERED: FENTANYL CITR 100 MCG/2 ML ONE (09:55)
[2022-06-22] MEDS ORDERED: BUPIVACAINE 0.5% Inj,MDV 50 mL VIAL ONE (10:12)
[2022-06-22 10:53] LABS: SARS-CoV-2 Antigen Rapid Res Negative (Negative)
--- NOTE | 2022-06-22 10:58 | P.BOP ---
Preoperative diagnosis: left leg cellulitis, necrotic wound, infected hematoma Postoperative diagnosis: same Primary procedure: Excisional subQ debridement of necrotic wound left leg with evacuation of Secondary procedure: infected hematoma/abscess 13 x 8 x 1.5 cm Estimated blood loss: <20cc Specimen: culture and necrotic tissue Findings: see dicta Anesthesia: General Complications: None Drain(s): Other (1/" iodoform) Transferred to: Recovery Room Condition: Good
[2022-06-22] MEDS: HYDROMORPHONE HCL 1 MG/ML INJ ONE ×2 (11:30→11:35)
--- NOTE | 2022-06-22 11:53 | CON ---
Date of Consultation: 06/22/2022 Diagnosis: Infected hematoma on the left leg, status post trauma with necrotic wound and necrotic ti ssue. History Of Present Illness: This is the case of 62 years old patient with history of cardiac disease , who several weeks ago hit the leg. [place] He came to [facility] emergency room, received doxycycline and Bactrim and sent back home, but the area did not improve, developed swelling of that area, necrotic wounds in center, what looked like an infected hematoma. T he patient could not put weight last night, so he came to the ER for evaluation. The patient was adm itted and a surgical consult was obtained for evacuation of infected hematoma and debridement of the necrotic wound and probably drainage of an abscess. Allergies: NONE. Medications: Reviewed including Flexeril, Protonix, Ultram, and Zestril. He is not taking any blood thinners. Past Medical History: Coronary artery disease, stents. Past Surgical History: Surgeries include bilateral rotator cuff repair. Family History: Noncontributory. Review of Systems: See H and P. No fever. No shortness of breath. No chest pain. Ten points otherwise unremarkable. Physical Examination: General: The patient is awake, alert. HEENT: Pupils are equal and reactive. Anicteric. Neck: Supple. Chest: Clear. Abdomen: Soft and depressible. No guarding or rebound. No peritoneal signs. Extremities: Good capillary refill. Over the left leg in the medial side, the patient has a necroti c wound, which is about 3 x 3 cm with swelling over the area, which is about 7 x 7 cm. There is fluc tuance. Most likely, it is an abscess or infected hematoma present. There is swelling present. Tristen salis pedis pulses bilaterally are present. The rest of the leg compartments look soft. Laboratory Data: Blood work shows WBC count of 10.6 with hemoglobin of 15 and platelets of 327. Pot assium is 4.6, creatinine is 1.09. Venous Doppler interpreted by Dr. Harding as a 5 cm hypoechoic struct ure in the left distal leg ankle region. That is the area where we have a fluctuance, necrotic wound , and most likely that correlated with the infected hematoma that we see or abscess. Assessment: A 62-year-old patient with cellulitis of the leg, necrotic wound, infected hematoma and abscess. The patient will be taken to the OR for an excision and debridement of the necrotic wound w ith evacuation of abscess or hematoma whatever we find in that area with benefits, alternatives, and risks including, but not limited to infection, bleeding, damage to adjacent structures, anesthesia co mplication, nonhealing wound, DE, and even . He also understands this may not relieve any sympt oms. He might need more than one surgical intervention. He understands also the importance of visit ing our office or wound care after that for continuous wound care, he may need wet-to-dry dressing de pends what we find in the next few minutes. DOUGLAS/MARIE Voice ID: [id number] Report ID: [id number]
--- NOTE | 2022-06-22 12:49 | P.DS ---
Admission Date: 06/21/22 Discharge Date: 06/22/22 Disposition: ROUTINE DISCHARGE Discharge Condition: FAIR Reason for Admission: Cellulitus/Hematoma LLE - Problems (1) Cellulitis of left ankle Status: Acute (2) Hematoma of left ankle Status: Acute (3) CAD (coronary artery disease) Status: Chronic Qualifiers: Coronary Disease-Associated Artery/Lesion type: [place] artery [place] vs. transplanted heart: [place] heart Associated angina: without angina Qualified Code(s): I25.10 - Atherosclerotic heart disease of [place] coronary artery without angina pectoris Brief History of Present Illness: Patient is a 62-year-old male with CAD who presented to the ED with complaints of left ankle pain. Patient reports that about 1 month ago he scraped his leg on [place], came to ED, and has been taking doxycycline and Bactrim since. He states that the wound did not heal and he developed significant pain. Hematoma noted to left medical ankle with surrounding erythema. General surgery was consulted and patient admitted for OR to drain the hematoma. Hospital Course: Patient seen by Dr. Martin and sent to the OR where excisional debridement with evacuation of infected hematoma and abscess done. Patient deemed stable for discharge per Dr. Martin after surgery. He is prescribed Augmentin and doxycycline and informed to follow-up with Dr. Martin as an outpatient. Vital Signs/Physical Exam: Temp Pulse Resp BP Pulse Ox 97.0 F 76 16 125/85 96 06/22/22 11:48 06/22/22 11:48 06/22/22 11:48 06/22/22 11:48 06/22/22 08:00 Laboratory Data at Discharge: WBC 8.90 K/uL (4.3-10.9) D 06/22/22 02:01 Hgb 12.8 g/dL (13.6-17.9) L 06/22/22 02:01 Hct 37.9 % (39.6-49.0) L 06/22/22 02:01 Plt Count 280 K/uL (152-406) 06/22/22 02:01 Sodium 140 mmol/L (136-145) 06/22/22 02:01 Potassium 4.3 mmol/L (3.5-5.1) 06/22/22 02:01 BUN 15 mg/dL (7-18) 06/22/22 02:01 Creatinine 1.13 mg/dL (0.55-1.3) 06/22/22 02:01 Glucose 130 mg/dL (74-106) H 06/22/22 02:01 Phosphorus 3.8 mg/dL (2.5-4.9) 06/22/22 02:01 Magnesium 2.3 mg/dL (1.8-2.4) 06/22/22 02:01 Total Bilirubin 0.2 mg/dL (0.2-1.0) 06/21/22 16:20 AST 17 U/L (15-37) 06/21/22 16:20 ALT 44 U/L (12-78) 06/21/22 16:20 Alkaline Phosphatase 92 U/L (45-117) 06/21/22 16:20 Home Medications: Atorvastatin Calcium [Lipitor] 40 mg PO BEDTIME 01/09/22 Cyclobenzaprine HCl [Flexeril] 5 mg PO PRN PRN 01/09/22 Isosorbide Mononitrate [Isosorbide Mononitrate ER] 30 mg PO DAILY 01/09/22 Lisinopril [Zestril] 2.5 mg PO DAILY 01/09/22 Pantoprazole [Protonix Tab*] 40 mg PO DAILY 01/09/22 Amox/Clavulanate [Augmentin 875-125 Tab] 1 each PO BID #20 tab 06/22/22 Doxycycline Hyclate 100 mg PO BID #20 tab 06/22/22 Hydrocodone 5/APAP 325 [[place] 5/325] 1 tab PO Q6H PRN #20 tab 06/22/22 New Medications: Amox/Clavulanate [Augmentin 875-125 Tab] 1 each PO BID #20 tab Doxycycline Hyclate 100 mg PO BID #20 tab Hydrocodone 5/APAP 325 [[place] 5/325] 1 tab PO Q6H PRN #20 tab PRN Reason: Pain Physician Discharge Instructions: [facility] sun[facility]. Call for appt time. 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
[2022-06-22 13:32] VITALS: BP 124/91; TEMP 97.4; O2SAT 95
--- NOTE | 2022-06-22 15:12 | EKG ---
Test Date: 2022-06-21 Test Time: 18:40:52 Intensive Care Unit Nurse: JAE MEASUREMENT RESULTS: Intervals: Rate: 76 [place]: 160 QRSD: 80 QT: 378 QTc: 425 [place]: P: 69 [place]: 160 QRS: 17 T: 45 INTERPRETIVE STATEMENTS: Normal sinus rhythm with sinus arrhythmia Normal ECG No previous ECG available for comparison Electronically Signed On 06-22-22 15:11:32 CDT by Rick Viera
[2022-06-23] MEDS ORDERED: VANCOMYCIN 1.75 GM in NA CHLORIDE 0.9% 500 ML IVPB SCH (03:00)
== END 2022-06-22 12:30 | disposition home or self-care (01) ==
LOC: ER 13:45 → ERHOLD 20:55
PROVIDERS: ADMIT Internal Medicine; ATTEND Internal Medicine
PROC: 0JBR0ZZ Excision of Left Foot Subcutaneous Tissue and Fascia, Open Approach (ICD-10-PCS; principal; 2022-06-22 10:15)
DX: L03.116 Cellulitis of left lower limb (principal); I96 Gangrene, not elsewhere classified; S90.02XA Contusion of left ankle, initial encounter; L02.416 Cutaneous abscess of left lower limb; I25.10 Atherosclerotic heart disease of native coronary artery without angina pectoris; I10 Essential (primary) hypertension; K21.9 Gastro-esophageal reflux disease without esophagitis; Z79.899 Other long term (current) drug therapy; Z95.5 Presence of coronary angioplasty implant and graft; Z87.891 Personal history of nicotine dependence; Z20.822 Contact with and (suspected) exposure to COVID-19; Z83.3 Family history of diabetes mellitus
CPT/HCPCS: 96365; 93005; 87040 ×2; 87070; 85025 ×2; 80048; 36415; 83735; 87205; 84100; 83605; 88304; 81003; 84484; 80053; 71045; 73610; 93971; 99285; 96366; 87811; 11042; 11045 ×5; J2704; J2250; J3010; J3370 ×3; J1100; J1170; G0378 ×4; J7050; J7040; J7030 ×2; J2405 ×2